=== PATIENT | female | born 1965 ===

== ENCOUNTER 2021-12-29 14:52 | Emergency (ER) | payer SELFPAY ==
[2021-12-29 15:09] VITALS: BP 107/67; PULSE 115; RESP 18; TEMP 99.9
== END 2021-12-29 19:25 | disposition left against medical advice (07) ==
LOC: EC 14:52
DX: Z53.21 Procedure and treatment not carried out due to patient leaving prior to being seen by health care provider (principal)
CPT/HCPCS: 87502; 87635